=== PATIENT | female | born 1995 ===

== ENCOUNTER 2022-02-21 09:45 | Observation (INO) | payer OTHER ==
[2022-02-21] MEDS ORDERED: PREN27TA7 OR ×2 (11:29)
[2022-02-21 12:27] LABS: Basophils # (auto) 0.1 10 ^3/uL (0-0.2); Basophils % (auto) 0.8 % (0.0-2.0); Eosinophils # (auto) 0 10 ^3/uL (0-0.8); Eosinophils % (auto) 0.4 % (0.0-7.0); Hematocrit 33.4 % (36.0-46.0); Hemoglobin 11.3 g/dL (12.2-16.2); Lymphocytes # (auto) 1.9 10 ^3/uL (0.4-5.4); Lymphocytes % (auto) 22.1 % (10.0-50.0); Mean Corpuscular Hemoglobin 28.3 pg (28.0-32.0); Mean Corpuscular Hgb Conc. 33.7 g/dL (32.0-36.0); Mean Corpuscular Volume 83.8 fL (80.0-100.0); Monocytes # (auto) 0.6 10 ^3/uL (0-1.3); Monocytes % (auto) 7.6 % (0.0-12.0); Neutrophils # (auto) 5.8 10 ^3/uL (1.6-8.6); Neutrophils % (auto) 69.1 % (37.0-80.0); Red Blood Cells 3.98 10^6/uL (4.0-5.20); Red Cell Distribution Width 15.1 % (11.8-14.3); White Blood Cell 8.4 10^3/uL (4.4-10.8)
[2022-02-21 12:31] LABS: Urine Bacteria FEW /hpf (None Seen); Urine Blood Negative /uL (Negative); Urine Specific Gravity 1.008 (1.001-1.035); Urine WBC <1 /hpf (0 - 5)
[2022-02-21 12:42] LABS: INR 0.92 (0.9-1.15); Partial Thromboplastin Time 23.1 sec (23.6-33.0)
[2022-02-21 12:47] LABS: Albumin 2.7 g/dL (3.4-5.0); Potassium 3.8 mmol/L (3.5-5.1)
[2022-02-21 12:55] LABS: BUN/Creatinine Ratio 10.9; Bilirubin, Total 0.5 mg/dL (0.2-1.0); Total Protein 6.8 g/dL (6.4-8.2); Uric Acid 5.1 mg/dL (2.6-6.0)
[2022-02-21 13:14] LABS: Alcohol, Urine < 3.0 mg/dL (0-10); Amphetamine Screen, Urine NEGATIVE (NEGATIVE); Barbiturate Scree,Urine NEGATIVE (NEGATIVE); Benzodiazephine Screen, Urine NEGATIVE (NEGATIVE); Cannabinoid Screen, Urine NEGATIVE (NEGATIVE); Cocaine Screen, Urine NEGATIVE (NEGATIVE); Opiate Scree,Urine NEGATIVE (NEGATIVE); Phencyclidine Screen, Urine NEGATIVE (NEGATIVE)
[2022-02-22 08:07] LABS: RPR Non Reactive (Non Reactive)
== END 2022-02-21 12:46 | disposition home or self-care (01) ==
LOC: EDBD → LDRP 09:45 → UNDOADMOB 09:45 → LDRP 11:07 → UNDODISOB 12:46
PROVIDERS: ADMIT Obstetrics & Gynecology; ATTEND Obstetrics & Gynecology
DX: O36.5930 Maternal care for other known or suspected poor fetal growth, third trimester, not applicable or unspecified (principal); O62.9 Abnormality of forces of labor, unspecified; O99.891 Other specified diseases and conditions complicating pregnancy; M54.9 Dorsalgia, unspecified; Z3A.36 36 weeks gestation of pregnancy; Z79.899 Other long term (current) drug therapy
CPT/HCPCS: 36415; 59025; 76818; 80053; 80307; 81001; 83036; 84550; 85025; 85610; 85730; 86592; 86703; 86762; 86850; 86900; 86901; 87340; 94760; G0378

== ENCOUNTER 2022-02-24 08:56 | Observation (INO) | payer OTHER ==
[~2022-02-24 08:56] MED LIST: PREN27TA7 OR
== END 2022-02-24 13:00 | disposition home or self-care (01) ==
LOC: EDBD → LDRP 10:50 → UNDOADMOB 10:50 → LDRP 11:45 → UNDODISOB 13:00
PROVIDERS: ADMIT Obstetrics & Gynecology; ATTEND Obstetrics & Gynecology
DX: O36.5930 Maternal care for other known or suspected poor fetal growth, third trimester, not applicable or unspecified (principal); Z3A.36 36 weeks gestation of pregnancy
CPT/HCPCS: 59025; 76818; 81002; 94760; G0378

== ENCOUNTER 2022-03-03 09:58 | Observation (INO) | payer OTHER | END 2022-03-03 12:36 | disposition home or self-care (01) | LOC: EDBD → LDRP 11:00 → UNDOADMOB 11:00 → LDRP 11:33 → UNDODISOB 12:36 | PROVIDERS: ADMIT Obstetrics & Gynecology; ATTEND Obstetrics & Gynecology | DX: O36.5930 Maternal care for other known or suspected poor fetal growth, third trimester, not applicable or unspecified (principal); O62.9 Abnormality of forces of labor, unspecified; O34.63 Maternal care for abnormality of vagina, third trimester; N89.8 Other specified noninflammatory disorders of vagina; Z3A.37 37 weeks gestation of pregnancy; Z87.891 Personal history of nicotine dependence | CPT/HCPCS: 59025; 76818; 81002; 94760; G0378 ==

== ENCOUNTER 2022-03-07 10:59 | Observation (INO) | payer OTHER | END 2022-03-07 20:18 | disposition home or self-care (01) | LOC: EDBD → LDRP 10:59 | PROVIDERS: ADMIT Obstetrics & Gynecology; ATTEND Obstetrics & Gynecology | DX: O36.5930 Maternal care for other known or suspected poor fetal growth, third trimester, not applicable or unspecified (principal); Z3A.38 38 weeks gestation of pregnancy | CPT/HCPCS: 59025; 76818; 81002; 94760; G0378 ==

== ENCOUNTER 2022-03-10 11:23 | Observation (INO) | payer OTHER ==
[2022-03-10] MEDS ORDERED: PREN-96 PO (11:45)
== END 2022-03-10 12:37 | disposition home or self-care (01) ==
LOC: EDBD → LDRP 11:23
PROVIDERS: ADMIT Obstetrics & Gynecology; ATTEND Obstetrics & Gynecology
DX: O36.5930 Maternal care for other known or suspected poor fetal growth, third trimester, not applicable or unspecified (principal); O62.9 Abnormality of forces of labor, unspecified; Z3A.38 38 weeks gestation of pregnancy
CPT/HCPCS: 59025; 76818; 81002; 94760; G0378

== ENCOUNTER 2022-03-12 11:00 | Observation (INO) | payer OTHER ==
[~2022-03-12 11:00] MED LIST changes: +PREN-96 PO
== END 2022-03-12 12:35 | disposition home or self-care (01) ==
LOC: LDRP 11:00 → EDBD 11:00
PROVIDERS: ADMIT Obstetrics & Gynecology; ATTEND Obstetrics & Gynecology
DX: O36.5930 Maternal care for other known or suspected poor fetal growth, third trimester, not applicable or unspecified (principal); Z20.822 Contact with and (suspected) exposure to COVID-19; O62.9 Abnormality of forces of labor, unspecified; Z3A.39 39 weeks gestation of pregnancy
CPT/HCPCS: 59025; 76818; 81002; 94760; G0378

== ENCOUNTER 2022-03-12 20:58 | Inpatient (IN) | payer OTHER ==
[~2022-03-12] VITALS: Ht 162.6 cm; Wt 86.6 kg
[2022-03-12] MEDS ORDERED: LIDOCAINE 2%HCL (LOCAL ANESTH.) INJ 10ml MDV IJ PRN (21:15)
[2022-03-12] MEDS ORDERED: miSOPROStol 50 MCG per PRE-CUT 1/2 TAB PO PRN (21:15)
[2022-03-12] MEDS ORDERED: PHISODERM TOP SOLN 240ML BTL TOP PRN (21:15)
[2022-03-12] MEDS ORDERED: DERMOPLAST 60ML BOTTLE TOP PRN (21:15)
[2022-03-12 22:13] LABS: Basophils # (auto) 0 10 ^3/uL (0-0.2); Basophils % (auto) 0.4 % (0.0-2.0); Eosinophils # (auto) 0.1 10 ^3/uL (0-0.8); Eosinophils % (auto) 0.5 % (0.0-7.0); Hematocrit 32.3 % (36.0-46.0); Hemoglobin 11.2 g/dL (12.2-16.2); Lymphocytes # (auto) 2.5 10 ^3/uL (0.4-5.4); Lymphocytes % (auto) 21.3 % (10.0-50.0); Mean Corpuscular Hemoglobin 27.7 pg (28.0-32.0); Mean Corpuscular Hgb Conc. 34.8 g/dL (32.0-36.0); Mean Corpuscular Volume 79.7 fL (80.0-100.0); Monocytes # (auto) 0.8 10 ^3/uL (0-1.3); Monocytes % (auto) 7.1 % (0.0-12.0); Neutrophils # (auto) 8.2 10 ^3/uL (1.6-8.6); Neutrophils % (auto) 70.7 % (37.0-80.0); Nucleated Red Blood Cells % 0.1 %; Red Blood Cells 4.05 10^6/uL (4.0-5.20); Red Cell Distribution Width 15.7 % (11.8-14.3); White Blood Cell 11.6 10^3/uL (4.4-10.8)
[2022-03-12 22:28] LABS: INR 0.93 (0.9-1.15); Partial Thromboplastin Time 21.7 sec (23.6-33.0)
[2022-03-12 22:29] LABS: Albumin 2.8 g/dL (3.4-5.0); BUN/Creatinine Ratio 17.9; Calcium 9.6 mg/dL (8.5-10.1); Potassium 3.4 mmol/L (3.5-5.1)
[2022-03-12 22:32] LABS: Bilirubin, Total 0.4 mg/dL (0.2-1.0); Total Protein 6.9 g/dL (6.4-8.2)
[2022-03-12 22:49] LABS: Urine Bacteria FEW /hpf (None Seen); Urine Blood Negative /uL (Negative); Urine Mucus FEW (None Seen); Urine Specific Gravity 1.021 (1.001-1.035); Urine WBC 15 /hpf (0 - 5)
[2022-03-12 23:04] LABS: Alcohol, Urine < 3.0 mg/dL (0-10); Amphetamine Screen, Urine NEGATIVE (NEGATIVE); Barbiturate Scree,Urine NEGATIVE (NEGATIVE); Benzodiazephine Screen, Urine NEGATIVE (NEGATIVE); Cannabinoid Screen, Urine NEGATIVE (NEGATIVE); Cocaine Screen, Urine NEGATIVE (NEGATIVE); Opiate Scree,Urine NEGATIVE (NEGATIVE); Phencyclidine Screen, Urine NEGATIVE (NEGATIVE)
[2022-03-13] MEDS: LACTATED RINGER'S 1,000 ML IV SCH ×2 (03:19→11:07)
[2022-03-13] MEDS ORDERED: LACT. RINGERS/OXYTOCIN 20UNITS 1,000 ML IV SCH (06:00)
[2022-03-13] MEDS ORDERED: TERBUTALINE SULFATE 1 MG/ML 1ML VIAL SC PRN (06:00)
[2022-03-13] MEDS ORDERED: LACT. RINGERS/OXYTOCIN 20UNITS 500 ML IV ONE ×2 (06:00→06:30)
[2022-03-13] MEDS: WITCH HAZEL-GLYCERIN PAD TOP PRN (06:57)
[2022-03-13] MEDS ORDERED: NALOXONE HCL 0.4 MG/ML VIAL IV ONE (07:15)
[2022-03-13] MEDS ORDERED: LIDOCAINE HCL 2 %PF INJ 10ML AMP IJ ONE ×2 (07:15→10:45)
[2022-03-13] MEDS ORDERED: ePHEDrine SULFATE 50 MG/ML AMP IV ONE (07:15)
[2022-03-13] MEDS ORDERED: ROPIVACAINE HCL 200 ML EPI SCH (07:15)
[2022-03-13] MEDS ORDERED: fentaNYL CITRATE 100 MCG/2 ML VL EPI ONE (07:15)
[2022-03-13] MEDS ORDERED: fentaNYL CITRATE 100 MCG/2 ML VL IV ONE (10:45)
[2022-03-13] MEDS ORDERED: BUTORPHANOL TARTRATE 2 MG/1 ML VIAL IM PRN (11:00)
[2022-03-13] MEDS ORDERED: PROMETHAZINE HCL 25 MG/ML 1ML IM ONE (11:15)
[2022-03-13] MEDS ORDERED: METHYLERGONOVINE MALEATE 0.2 MG/ML AMP IM ONE ×2 (15:24→15:45)
[2022-03-13] MEDS ORDERED: ONDANSETRON ODT 4 MG TAB PO PRN (16:00)
[2022-03-13] MEDS ORDERED: ACETAMINOPHEN 325 MG TAB PO PRN (16:00)
[2022-03-13 19:00] VITALS: BP 110/60
[2022-03-13] MEDS ORDERED: DOCUSATE SOD 100 MG CAP PO SCH (22:00)
[2022-03-13 23:24] VITALS: BP 99/61
[2022-03-13] MEDS: IBUPROFEN 800 MG TAB PO SCH (23:45)
[2022-03-14 03:30] VITALS: BP 101/56
[2022-03-14] MEDS ORDERED: DOCU100C10 PO (05:38)
[2022-03-14] MEDS ORDERED: IBUP800T26 PO (05:38)
[2022-03-14 07:00] VITALS: BP 100/67
[2022-03-14 07:06] LABS: RPR Non Reactive (Non Reactive)
[2022-03-14] MEDS: IBUPROFEN 800 MG TAB PO SCH ×2 (08:00→16:00)
[2022-03-14 11:00] VITALS: BP 94/48
[2022-03-14 15:00] VITALS: BP 110/58
[2022-03-14] MEDS: WITCH HAZEL-GLYCERIN PAD TOP PRN (15:55)
[2022-03-14] MEDS ORDERED: TETANUS-DIPTH-ACEL PERTUSSIS 0.5ML SYR Tdap IM ONE (17:30)
== END 2022-03-14 16:37 | disposition home or self-care (01) | DRG 807 ==
LOC: LDRP 20:58
PROVIDERS: ADMIT Obstetrics & Gynecology; ATTEND Obstetrics & Gynecology
PROC: 3E0P7VZ Introduction of Hormone into Female Reproductive, Via Natural or Artificial Opening (ICD-10-PCS; 2022-03-12)
PROC: 3E0DXGC Introduction of Other Therapeutic Substance into Mouth and Pharynx, External Approach (ICD-10-PCS; 2022-03-12)
PROC: 10E0XZZ Delivery of Products of Conception, External Approach (ICD-10-PCS; principal; 2022-03-13)
PROC: 3E0234Z Introduction of Serum, Toxoid and Vaccine into Muscle, Percutaneous Approach (ICD-10-PCS; 2022-03-14)
DX: O36.5930 Maternal care for other known or suspected poor fetal growth, third trimester, not applicable or unspecified (principal); Z37.0 Single live birth; Z88.5 Allergy status to narcotic agent; Z3A.39 39 weeks gestation of pregnancy; Z20.822 Contact with and (suspected) exposure to COVID-19; Z23 Encounter for immunization
CPT/HCPCS: 36415; 59025; 59409; 62282; 80053; 80307; 81001; 81002; 85025; 85610; 85730; 86592; 86850; 86900; 86901; 90715; 94760; 96360; 96361; 96365; 96366; 96372; 96374; G0378; J2001; J2590